=== PATIENT | female | born 1990 | race Caucasian/White ===

== ENCOUNTER 2018-04-18 02:47 | Inpatient (IN) ==
[2018-04-18] MEDS ORDERED: fentaNYL Citrate Inj 100 MCG/2 ML Ampul IV.PUSH PRN ×3 (03:19→04:21)
--- NOTE | 2018-04-18 03:23 | ED ---
History of Present Illness Service: [facility] [place] Primary Care Physician: Tania Womack MD Chief Complaint: Contractions History of Present Illness: This 28 y/o female , EGA 40 6/7 wks presents with c/o ctxs. She states they started today. She feels them approx every 5 min. She has a hx of pseudotumor and a seizure disorder for which she has not been taking meds. She has received PNC at [facility]. Weeks Gestation:: 40 Para: 0 : 4 Review of Systems All other systems reviewed negative except as stated in HPI [facility] - History History Provided By: Patient - Medical History Medical History: Medical History (Last Updated 04/14/18 @ 21:22 by Lc Douglas MD) Asthma Hydrocephalus Pseudotumor cerebri Seizures - Social History I have reviewed the patient's Social History: Yes - Tobacco History Smoking Status: Former smoker (quit during this ) Tobacco Type: Cigarettes - Alcohol History How Often Do You Have a Drink Containing Alcohol: Never (Previous alcohol abuse) - Substance Use History Substance History: No History of Abuse - Travel History History of Recent Travel: No Recent Travel in the [place] Within the Last 8 Weeks: No Recent Travel Out of the Country Within the Last 8 Weeks: No Medications and Allergies Allergies Allergy/AdvReac Type Severity Reaction Status Date / Time methylphenidate Allergy Unknown HIVES Verified 04/14/18 20:59 latex Allergy Rash Verified 04/14/18 20:59 Home Medications Medication Instructions Recorded Confirmed Type vit-iron fum-folic ac 1 tab PO DAILY 04/14/18 04/14/18 History [ Vitamin] Exam Vital signs: Vital Signs 04/18/18 02:58 04/18/18 03:10 Temperature 98.4 F Pulse Rate 80 Respiratory Rate 16 16 Blood Pressure 137/74 Narrative: GENERAL: Well-nourished, well-developed patient. SKIN: Warm and dry. HEAD: Normocephalic and atraumatic. EYES: No scleral icterus. No injection or drainage. ENT: No nasal drainage noted. Mucous membranes pink. Airway patent. NECK: Supple, trachea midline. No JVD. CARDIOVASCULAR: Regular rate and rhythm without murmurs, gallops, or rubs. RESPIRATORY: Breath sounds equal bilaterally. No accessory muscle use. ABDOMEN/GI: Abdomen soft, non-tender, bowel sounds present, no rebound, no guarding Gravid to [41+] weeks size GENITOURINARY: External Genitalia: intact and normal in appearance BUS glands: [Neg] Cervix: [] Dilatation: [1-2] Effacement: [50] Station: [-2] Presentation: [vtx] Membranes: [intact] Uterine Contractions: [every 2-3 min] FHT's: Category: [1] Baseline: [120] Reactive: [Yes] Variability: [Mod] Decels: [No] + Accels EXTREMITIES: No cyanosis or edema. BACK: Nontender without obvious deformity. No CVA tenderness. NEUROLOGICAL: Awake and alert. Motor and sensory grossly within normal limits. Five out of 5 muscle strength in all muscle groups. Normal speech. Results - Labs Group B Strep: Negative Assessment and Plan - Diagnosis (1) Uterine contractions during Code(s): O62.2 - Other uterine inertia Status: Acute (2) Seizure disorder Code(s): G40.909 - Epilepsy, unspecified, not intractable, without status epilepticus Status: Acute (3) 40 weeks gestation of Code(s): Z3A.40 - 40 weeks gestation of Status: Acute - Plan IV fluids, Fentanyl, recheck cervix in 1 hr 4:19 AM- Cervix rechecked- 3/50/-3, ctxs every 2-3 min, FHTs category 1, reactive Discharge Plan - Discharge Disposition Patient Disposition: ED Admit(ED Internal Use Only) - Physicians Team ED Provider: Liz Lieberman Primary Care Provider: Tania Womack Rxs /Orders / Referrals /Forms Prescriptions: No Action vit-iron fum-folic ac [ Vitamin] 27 mg iron- 0.8 mg Tablet 1 tab PO DAILY - Discharge Instructions Print Language: Zambian
[2018-04-18] MEDS ORDERED: Sod Chloride 0.9% Inj 1,000 ML IV.CONT PRN (04:21)
[2018-04-18] MEDS ORDERED: Oxytocin 30 Units/500ml Premix 30 UNITS/500 ML BAG IV.SIG ONE (04:21)
[2018-04-18] MEDS ORDERED: Naloxone Inj 0.4 MG/ML Vial IV.PUSH PRN ×2 (04:21→16:28)
[2018-04-18] MEDS ORDERED: Sodium Chlor 0.9% Inj 500 ML IV.SIG PRN (04:21)
--- NOTE | 2018-04-18 04:28 | P.HPOB ---
Patient Name: Renetta Hudson Date of : 86 Patient Status: Emergency Emergency Provider: Liz Lieberman Date: 04/18/18 04:26 Initialization Date: 04/18/18 03:20 History of Present Illness [place]: [facility] [place] Primary Care Physician: Tania Womack MD Chief Complaint: Contractions History of Present Illness: This 28 y/o female , EGA 40 6/7 wks presents with c/o ctxs. She states they started today. She feels them approx every 5 min. She has a hx of pseudotumor and a seizure disorder for which she has not been taking meds. She has received PNC at [facility]. Her initial cervical exam was 1-2 cm. It is now 3/50/-3. Weeks Gestation:: 40 Para: 0 : 4 Review of Systems All other systems reviewed negative except as stated in HPI [facility] - History History Provided By: Patient - Medical History Medical History: Medical History (Last Updated 04/14/18 @ 21:22 by Lc Douglas MD) Asthma Hydrocephalus Pseudotumor cerebri Seizures - Social History I have reviewed the patient's Social History: Yes - Tobacco History Smoking Status: Former smoker (quit during this ) Tobacco Type: Cigarettes - Alcohol History How Often Do You Have a Drink Containing Alcohol: Never (Previous alcohol abuse) - Substance Use History Substance History: No History of Abuse - Travel History History of Recent Travel: No Recent Travel in the [place] Within the Last 8 Weeks: No Recent Travel Out of the Country Within the Last 8 Weeks: No Medications and Allergies Allergies Allergy/AdvReac Type Severity Reaction Status Date / Time methylphenidate Allergy Unknown HIVES Verified 04/14/18 20:59 latex Allergy Rash Verified 04/14/18 20:59 Home Medications Medication Instructions Recorded Confirmed Type vit-iron fum-folic ac 1 tab PO DAILY 04/14/18 04/14/18 History [ Vitamin] Exam Vital signs: Vital Signs 04/18/18 02:58 04/18/18 03:10 Temperature 98.4 F Pulse Rate 80 Respiratory Rate 16 16 Blood Pressure 137/74 Narrative: GENERAL: Well-nourished, well-developed patient. SKIN: Warm and dry. HEAD: Normocephalic and atraumatic. EYES: No scleral icterus. No injection or drainage. ENT: No nasal drainage noted. Mucous membranes pink. Airway patent. NECK: Supple, trachea midline. No JVD. CARDIOVASCULAR: Regular rate and rhythm without murmurs, gallops, or rubs. RESPIRATORY: Breath sounds equal bilaterally. No accessory muscle use. ABDOMEN/GI: Abdomen soft, non-tender, bowel sounds present, no rebound, no guarding Gravid to [41+] weeks size GENITOURINARY: External Genitalia: intact and normal in appearance BUS glands: [Neg] Cervix: [] Dilatation: [13] Effacement: [50] Station: [-3] Presentation: [vtx] Membranes: [intact] Uterine Contractions: [every 2-3 min] FHT's: Category: [1] Baseline: [120] Reactive: [Yes] Variability: [Mod] Decels: [No] + Accels EXTREMITIES: No cyanosis or edema. BACK: Nontender without obvious deformity. No CVA tenderness. NEUROLOGICAL: Awake and alert. Motor and sensory grossly within normal limits. Five out of 5 muscle strength in all muscle groups. Normal speech. Results - Labs Group B Strep: Negative Assessment and Plan - Diagnosis (1) Uterine contractions during Code(s): O62.2 - Other uterine inertia Status: Acute (2) Seizure disorder Code(s): G40.909 - Epilepsy, unspecified, not intractable, without status epilepticus Status: Acute (3) 40 weeks gestation of Code(s): Z3A.40 - 40 weeks gestation of Status: Acute - Plan IV fluids, Fentanyl, recheck cervix in 1 hr 4:19 AM- Cervix rechecked- 3/50/-3, ctxs every 2-3 min, FHTs category 1, reactive Will admit in labor- epidural as needed Discharge Plan - Discharge Disposition Patient Disposition: ED Admit(ED Internal Use Only) - Physicians Team ED Provider: Liz Lieberman Primary Care Provider: Tania Womack - Rxs /Orders / Referrals /Forms Prescriptions: No Action vit-iron fum-folic ac [ Vitamin] 27 mg iron- 0.8 mg Tablet 1 tab PO DAILY - Discharge Instructions Print Language: Bangladeshi
[2018-04-18] MEDS ORDERED: Citric Acid/Sodium Citrate Liq 30 ML UDC PO SCH (04:30)
[2018-04-18 04:36] LABS: Baso % (Auto) 0.5 % (0.0-2.0); Eos # (Auto) 0.1 th/mm3 (0.0-0.4); Eos % (Auto) 0.6 % (0.0-4.0); Hematocrit 34.1 % (35.0-46.0); Hemoglobin 11.9 gm/dL (11.6-15.3); Lymph # (Auto) 3.6 th/mm3 (1.0-4.8); Mean Corpuscular Hemoglobin 30.9 pg (27.0-34.0); Mean Corpuscular Volume 88.3 fL (80.0-100.0); Mean Platelet Volume 9.6 fL (7.0-11.0); Mono # (Auto) 0.6 th/mm3 (0.0-0.9); Mono % (Auto) 5.6 % (0.0-8.0); Neut # (Auto) 6.5 th/mm3 (1.8-7.7); Neut % (Auto) 60.3 % (16.0-70.0); Platelet Count 207 th/mm3 (150-450); Red Blood Count 3.86 mil/mm3 (4.00-5.30); Red Cell Distribution Width 14.2 % (11.6-17.2); White Blood Count 10.8 th/mm3 (4.0-11.0)
[2018-04-18] MEDS ORDERED: fentaNYL 2MCG-Bupiv 0.125% Epi 150 ML EPIDURAL ONE (04:59)
[2018-04-18] MEDS ORDERED: Lidocaine PF 1% Inj 5 ML Vial ONE (05:21)
[2018-04-18] MEDS ORDERED: Lidocaaine 1.5%/Epinephrine 1:200,000 PF Inj 5 ML Amp ONE (05:21)
[2018-04-18] MEDS ORDERED: fentaNYL Citrate Inj 100 MCG/2 ML Ampul EPIDURAL ONE (06:29)
[2018-04-18] MEDS ORDERED: fentaNYL 2MCG-Bupiv 0.125% Epi 150 ML EPIDURAL PRN (06:29)
--- NOTE | 2018-04-18 07:34 | P.OBLABOR ---
Subjective Interval history: Pt doing well with epidural. Comfortable. Objective Vital Signs: Vital Signs - 8 hr 04/18/18 02:58 04/18/18 03:10 04/18/18 04:32 Temperature 98.4 F Pulse Rate 80 68 Respiratory Rate 16 16 Blood Pressure 137/74 128/70 04/18/18 04:45 04/18/18 05:29 04/18/18 05:40 Temperature Pulse Rate 67 72 Respiratory Rate 20 Blood Pressure 142/85 H 127/73 04/18/18 05:46 04/18/18 05:56 04/18/18 06:11 Temperature Pulse Rate 83 75 85 Respiratory Rate Blood Pressure 129/79 133/74 129/81 04/18/18 06:12 04/18/18 06:16 04/18/18 06:20 Temperature Pulse Rate 86 89 Respiratory Rate 18 Blood Pressure 120/72 04/18/18 06:58 04/18/18 07:01 04/18/18 07:21 Temperature Pulse Rate 73 71 73 Respiratory Rate 18 Blood Pressure 113/64 119/65 112/57 L Objective: Pelvic Exam: Cervix: [] Dilatation: [5] Effacement: [80] Station: [-3] Presentation: [vtx] Membranes: [uptured with amniohook] Uterine Contractions: [every 2-4 min] FHT's: Category: [1] Baseline: [120] Reactive: [yes] Variability: [Mod] Decels: [No] + Accels Weeks Gestation: 40 Patient Started Active Labor: Yes Active Labor Start Date: 04/18/18 Medical Induction of Labor: No Artificial Rupture of Membrane: Yes (meconium) Artificial ROM Date: 04/18/18 Artificial ROM Time: 07:30 Assessment and Plan - Diagnosis (1) Uterine contractions during Code(s): O62.2 - Other uterine inertia Status: Acute (2) Seizure disorder Code(s): G40.909 - Epilepsy, unspecified, not intractable, without status epilepticus Status: Acute (3) 40 weeks gestation of Code(s): Z3A.40 - 40 weeks gestation of Status: Acute
--- NOTE | 2018-04-18 11:28 | P.OBGPN ---
Patient complaining of severe rectal pain feeling as if she has to have a bowel movement On examination cervix is 5/80 %/-2. heart rate reassuring. Uterus was palpated at this time no clinical signs of abruption patient is not having frequent contractions without adequate uterine rest. Her epidural was topped off and also ordered Ativan 1 mg since patient appears quite uncomfortable
[2018-04-18] MEDS ORDERED: Lidocaine 1% Inj 50 ML Vial ONE (15:11)
[2018-04-18] MEDS ORDERED: Oxytocin 30 Units/500ml Premix 30 UNITS/500 ML BAG ONE (15:13)
[2018-04-18] MEDS ORDERED: Oxytocin 30 Units/500ml Premix 30 UNITS/500 ML BAG IV.CONT PRN (16:28)
[2018-04-18] MEDS ORDERED: Benzocaine 20% Top Spray 60 ML Can TOPICAL PRN (16:28)
[2018-04-18] MEDS ORDERED: Witch Hazel 50%/Glyderin 12.5% 40 Pad Jar RECTAL PRN (16:28)
[2018-04-18] MEDS ORDERED: Acetaminophen 325 MG Tablet PO PRN (16:28)
[2018-04-18] MEDS ORDERED: Bisacodyl 10 MG Supp RECTAL PRN (16:28)
[2018-04-18] MEDS ORDERED: LORazepam 1 MG Tablet PO PRN (16:29)
--- NOTE | 2018-04-18 16:39 | P.OBDELI ---
Weeks Gestation: 40 Episiotomy: none Vaginal Delivery: Normal, Spontaneous Nuchal Cord: x1 Delayed Cord Clamping (45 sec): Yes Placenta: Spontaneous delivery, Uterus explored + Laceration: Vaginal (right labial tear repaired in the usual fashion) Estimated blood loss (mL): 200 Infant: Female Female A Delivery Date: 04/18/18 Delivery Time: 16:11 Weight: 3.275 kg score (1 min): 7 score (5 min): 8 Additional Information: Delivered by Dr. Baird, Supervised by Dr. HARRIS
[2018-04-18] MEDS ORDERED: Diphtheria/Tetanus/Pertussis Vaccine Inj 0.5 ML Syringe IM ONE (18:00)
[2018-04-18] MEDS ORDERED: Measles/Mumps/Rubella Vaccine Inj 0.5 ML Vial SQ ONE (18:00)
[2018-04-18] MEDS ORDERED: Zolpidem Tartrate 5 MG Tablet PO PRN (21:00)
[2018-04-19] MEDS: Senna/Docusate Sodium 8.6/50 MG Tablet PO SCH ×3 (00:37→22:06)
[2018-04-19] MEDS: Prenatal Vit/Ca/Iron/Folic Acid Tablet PO SCH (08:19)
--- NOTE | 2018-04-19 09:19 | P.PNOB ---
Subjective Post day: 1 Interval history: Patient is a 28-year-old delivered at 40 weeks and 6 days. Patient is day 1 after . Patient's pain is well-controlled. Patient reports eating and drinking without any nausea or vomiting. Patient reports minimal bleeding. Patient has passed gas but no bowel movements. Patient is walking without lower extremity pain or shortness of breath. Objective Vital Signs/I&O: Vital Signs 04/18/18 09:45 04/18/18 10:31 04/18/18 11:01 Temperature 98.7 F Pulse Rate 74 71 76 Respiratory Rate 18 Blood Pressure 123/67 114/51 L 139/75 04/18/18 11:20 04/18/18 11:39 04/18/18 11:40 Temperature Pulse Rate 150 H Respiratory Rate 20 20 Blood Pressure 131/80 04/18/18 12:06 04/18/18 13:01 04/18/18 13:15 Temperature 98.0 F Pulse Rate 83 85 Respiratory Rate 20 20 Blood Pressure 119/47 L 131/74 04/18/18 14:02 04/18/18 14:24 04/18/18 16:25 Temperature 98.1 F 99.3 F Pulse Rate 114 H Respiratory Rate 20 20 Blood Pressure 123/109 H 04/18/18 16:33 04/18/18 16:40 04/18/18 17:16 Temperature Pulse Rate 110 H 99 H 90 Respiratory Rate 18 Blood Pressure 125/81 127/94 H 129/82 04/18/18 17:21 04/18/18 17:33 04/18/18 18:01 Temperature Pulse Rate 97 H 93 H Respiratory Rate 18 Blood Pressure 126/82 128/74 04/18/18 18:16 04/18/18 19:32 04/18/18 19:33 Temperature Pulse Rate 87 86 Respiratory Rate 18 Blood Pressure 143/93 H 129/72 04/18/18 20:25 Temperature 97.9 F Pulse Rate 80 Respiratory Rate 18 Blood Pressure 142/80 H Result Diagrams: 04/18/18 03:20 Objective Remarks: GENERAL: Well-nourished, well-developed patient. CARDIOVASCULAR: Regular rate and rhythm without murmurs, gallops, or rubs. RESPIRATORY: Breath sounds equal bilaterally. No accessory muscle use. ABDOMEN/GI: Abdomen soft, non-tender. Fundus: Firm, non-tender at umbilicus. GENITOURINARY: Light to moderate bleeding. EXTREMITIES: No cyanosis or edema, non-tender, without signs of DVT. Medications and IVs: Active Medications Acetaminophen (Tylenol) 650 mg PO Q4H PRN PRN Reason: PAIN SCALE 1 TO 2 Al Hydroxide/Mg Hydroxide (Milk Of Magnesia Liq) 30 ml PO Q12H PRN PRN Reason: Mild Constipation Benzocaine (Americaine 20% [place]) 1 spray TOPICAL Q4H PRN PRN Reason: For Perineum Discomfort Last Admin: 04/18/18 18:19 Dose: 1 spray Bisacodyl (Dulcolax Supp) 10 mg RECTAL DAILY PRN PRN Reason: SEVERE CONSITIPATION Citric Acid/Sodium Citrate (Sodium Citrate/Citric Acid Liq) 30 ml PO [employer] [facility] Stop: 04/22/18 04:29 Fentanyl Citrate (Fentanyl Inj) 25 mcg IV.PUSH Q1H PRN PRN Reason: PROCEDURE ANESTHESIA Fentanyl Citrate (Fentanyl Inj) 100 mcg IV.PUSH Q1H PRN PRN Reason: PAIN SCALE 6 TO 10 Fentanyl Citrate (Fentanyl Inj) 50 mcg IV.PUSH Q1H PRN PRN Reason: Pain Scale 3 - 5 Lactated Ringer's (Lr 1000 Ml Inj) 1,000 mls @ 125 mls/hr IV.CONT .Q8H [facility] Last Admin: 04/18/18 22:09 Dose: Not Given Lactated Ringer's (Lr 1000 Ml Inj) 1,000 mls @ 3,000 mls/hr IV.SIG UNSCH PRN PRN Reason: compromise or epidural Lactated Ringer's (Lr 1000 Ml Inj) 1,000 mls @ 125 mls/hr IV.CONT .Q8H [facility] Last Admin: 04/19/18 07:24 Dose: Not Given Sodium Chloride (Ns Inj) 500 mls @ 1,000 mls/hr IV.SIG UNSCH PRN PRN Reason: SEE LABEL COMMENTS Sodium Chloride (Ns Inj) 1,000 mls @ 100 mls/hr IV.CONT .Q10H PRN PRN Reason: SEE LABEL COMMENTS Fentanyl/Bupivacaine/Sodium Chlor (Fentanyl 2 Mcg-Bupiv 0.125% Epi) 150 mls @ 10 mls/hr EPIDURAL PRN PRN PRN Reason: for Labor Pain Last Admin: 04/18/18 06:20 Dose: 10 mls/hr Oxytocin (Pitocin 30 Units/Ns 500 Ml Premix) 30 units in 500 mls @ 100 mls/hr IV.CONT UNSCH PRN PRN Reason: Heavy bleeding Ibuprofen (Motrin) 800 mg PO Q8H PRN PRN Reason: For Cramping Last Admin: 04/19/18 08:19 Dose: 800 mg Lactulose (Lactulose Liq) 30 ml PO DAILY PRN PRN Reason: SEVERE CONSITIPATION Lidocaine HCl (Xylocaine 1% Inj) 10 ml INFILTRATN PRN PRN PRN Reason: For episiotomy repair Stop: 04/20/18 04:20 Mineral Oil (Muri-Lube Oil) 10 ml TOPICAL PRN PRN PRN Reason: PRN perineal massage Last Admin: 04/18/18 16:00 Dose: 10 ml Naloxone HCl (Narcan Inj) 0.1 mg IV.PUSH Q2M PRN PRN Reason: for opiate reversal Naloxone HCl (Narcan Inj) 0.1 mg IV.PUSH Q2M PRN PRN Reason: for opiate reversal Ondansetron HCl (Zofran Odt) 4 mg PO Q6H PRN PRN Reason: NAUSEA OR VOMITING Vit/Calcium/Iron/Folic Ac (Stuartnatal Plus 3) 1 tab PO DAILY [facility] Last Admin: 04/19/18 08:19 Dose: 1 tab Senna/Docusate Sodium (Lucero-Colace) 1 tab PO BID [facility] Last Admin: 04/19/18 08:19 Dose: 1 tab Sennosides (Senokot) 17.2 mg PO Q12H PRN PRN Reason: Moderate Constipation Witch Sonia/Glycerin (Tucks Pads) 1 applicatio RECTAL QID PRN PRN Reason: HEMORRHOIDS Last Admin: 04/18/18 18:19 Dose: 1 applicatio Zolpidem Tartrate (Ambien) 5 mg PO HS PRN PRN Reason: SLEEP Assessment and Plan - Diagnosis (1) Vaginal delivery Code(s): O80 - Encounter for full-term uncomplicated delivery Status: Acute - Plan Patient is a 28-year-old delivered at 40 weeks and 6 days. Patient is day 1 after . Patient was counseled to do 6 weeks of pelvic rest. Patient was counseled to follow up in 6 weeks. --AF VSS but BP is 140s/90s --Will monitor BP Q1H for 4 hours --CBC and CMP to monitor platelets and LFTs --Continue routine care --Motrin when necessary for pain --Encourage OOB --Pelvic rest for 6 weeks will need follow-up appointment at that time. --Contraception: Patient is still contemplating method --Anticipate discharge tomorrow
[2018-04-19 10:24] LABS: Baso % (Auto) 0.3 % (0.0-2.0); Eos # (Auto) 0.1 th/mm3 (0.0-0.4); Eos % (Auto) 0.4 % (0.0-4.0); Hematocrit 32.9 % (35.0-46.0); Hemoglobin 11.3 gm/dL (11.6-15.3); Lymph # (Auto) 3.6 th/mm3 (1.0-4.8); Lymph % (Auto) 20.9 % (9.0-44.0); Mean Corpuscular HGB Conc 34.2 % (32.0-36.0); Mean Corpuscular Hemoglobin 30.7 pg (27.0-34.0); Mean Corpuscular Volume 89.8 fL (80.0-100.0); Mean Platelet Volume 9.3 fL (7.0-11.0); Mono # (Auto) 0.7 th/mm3 (0.0-0.9); Mono % (Auto) 3.9 % (0.0-8.0); Neut # (Auto) 12.7 th/mm3 (1.8-7.7); Neut % (Auto) 74.5 % (16.0-70.0); Platelet Count 193 th/mm3 (150-450); Red Blood Count 3.67 mil/mm3 (4.00-5.30); Red Cell Distribution Width 14.9 % (11.6-17.2)
[2018-04-19 10:52] LABS: Albumin 2.6 g/dL (3.4-5.0); Anion Gap 9 meq/L (5-15); Blood Urea Nitrogen 7 mg/dL (7-18); Calcium 9.1 mg/dL (8.5-10.1); Carbon Dioxide 22.9 meq/L (21.0-32.0); Chloride 108 meq/L (98-107); Glucose,Random 97 mg/dL (74-106); Potassium 3.7 meq/L (3.5-5.1); Sodium 140 meq/L (136-145)
[2018-04-19 12:19] LABS: Alanine Aminotransferase 47 U/L (10-53); Alkaline Phosphatase 128 U/L (45-117); Aspartate Aminotransferase 159 U/L (15-37); Glomerular Filtration Rate 70 mL/min (>89); Total Protein 6.1 g/dL (6.4-8.2)
[2018-04-19 16:33] LABS: Albumin 2.6 g/dL (3.4-5.0)
[2018-04-19 16:35] LABS: Total Protein 6.1 g/dL (6.4-8.2)
[2018-04-20] MEDS: Prenatal Vit/Ca/Iron/Folic Acid Tablet PO SCH (08:19)
[2018-04-20] MEDS: Senna/Docusate Sodium 8.6/50 MG Tablet PO SCH (08:19)
[2018-04-20 08:29] LABS: Baso % (Auto) 0.4 % (0.0-2.0); Eos # (Auto) 0.2 th/mm3 (0.0-0.4); Eos % (Auto) 1.5 % (0.0-4.0); Hematocrit 30.2 % (35.0-46.0); Hemoglobin 10.5 gm/dL (11.6-15.3); Lymph # (Auto) 3.2 th/mm3 (1.0-4.8); Lymph % (Auto) 30.7 % (9.0-44.0); Mean Corpuscular HGB Conc 34.8 % (32.0-36.0); Mean Corpuscular Hemoglobin 31.3 pg (27.0-34.0); Mean Platelet Volume 8.9 fL (7.0-11.0); Mono # (Auto) 0.6 th/mm3 (0.0-0.9); Mono % (Auto) 5.4 % (0.0-8.0); Neut # (Auto) 6.5 th/mm3 (1.8-7.7); Platelet Count 180 th/mm3 (150-450); Red Blood Count 3.35 mil/mm3 (4.00-5.30); Red Cell Distribution Width 14.9 % (11.6-17.2); White Blood Count 10.6 th/mm3 (4.0-11.0)
[2018-04-20 08:51] LABS: Albumin 2.7 g/dL (3.4-5.0); Anion Gap 11 meq/L (5-15); Aspartate Aminotransferase 119 U/L (15-37); Blood Urea Nitrogen 7 mg/dL (7-18); Calcium 8.7 mg/dL (8.5-10.1); Carbon Dioxide 20.5 meq/L (21.0-32.0); Chloride 110 meq/L (98-107); Glomerular Filtration Rate 76 mL/min (>89); Glucose,Random 82 mg/dL (74-106); Potassium 3.5 meq/L (3.5-5.1); Sodium 141 meq/L (136-145)
[2018-04-20 08:52] LABS: Alanine Aminotransferase 52 U/L (10-53)
[2018-04-20 08:54] LABS: Alkaline Phosphatase 108 U/L (45-117); Total Protein 5.8 g/dL (6.4-8.2)
--- NOTE | 2018-04-20 09:01 | P.PNOB ---
Subjective Post day: 2 Interval history: day # 2. AFVSS overnight. Pain well-controlled. Decreased lochia. Denies dysuria. No breast tenderness. She is feeding the baby via breast/ bottle. Appetite good. No nausea or vomiting. + flatus. no bowel movement. Ambulating well. Denies calf pain, shortness of breath, or cough. Otherwise, she is doing well this morning and has no other complaints. Objective Vital Signs/I&O: Vital Signs 04/19/18 10:00 04/19/18 11:00 04/19/18 20:00 Temperature 98.1 F 98.1 F Pulse Rate 83 78 93 H Respiratory Rate 18 18 18 Blood Pressure 131/82 142/87 H 146/97 H 04/20/18 08:10 Temperature 97.7 F Pulse Rate 76 Respiratory Rate 18 Blood Pressure 133/81 Result Diagrams: 04/20/18 08:18 04/20/18 08:18 Objective Remarks: GENERAL: Well-nourished, well-developed patient. CARDIOVASCULAR: Regular rate and rhythm without murmurs, gallops, or rubs. RESPIRATORY: Breath sounds equal bilaterally. No accessory muscle use. ABDOMEN/GI: Abdomen soft, non-tender. Fundus: Firm, non-tender at umbilicus. GENITOURINARY: Light to moderate bleeding. EXTREMITIES: No cyanosis or edema, non-tender, without signs of DVT. Medications and IVs: Active Medications Acetaminophen (Tylenol) 650 mg PO Q4H PRN PRN Reason: PAIN SCALE 1 TO 2 Al Hydroxide/Mg Hydroxide (Milk Of Magnesia Liq) 30 ml PO Q12H PRN PRN Reason: Mild Constipation Benzocaine (Americaine 20% Top [place]) 1 spray TOPICAL Q4H PRN PRN Reason: For Perineum Discomfort Last Admin: 04/18/18 18:19 Dose: 1 spray Bisacodyl (Dulcolax Supp) 10 mg RECTAL DAILY PRN PRN Reason: SEVERE CONSITIPATION Citric Acid/Sodium Citrate (Sodium Citrate/Citric Acid Liq) 30 ml PO [facility] Stop: 04/22/18 04:29 Fentanyl Citrate (Fentanyl Inj) 25 mcg IV.PUSH Q1H PRN PRN Reason: PROCEDURE ANESTHESIA Fentanyl Citrate (Fentanyl Inj) 100 mcg IV.PUSH Q1H PRN PRN Reason: PAIN SCALE 6 TO 10 Fentanyl Citrate (Fentanyl Inj) 50 mcg IV.PUSH Q1H PRN PRN Reason: Pain Scale 3 - 5 Lactated Ringer's (Lr 1000 Ml Inj) 1,000 mls @ 125 mls/hr IV.CONT .Q8H [facility] Last Admin: 04/18/18 22:09 Dose: Not Given Lactated Ringer's (Lr 1000 Ml Inj) 1,000 mls @ 3,000 mls/hr IV.SIG UNSCH PRN PRN Reason: compromise or epidural Lactated Ringer's (Lr 1000 Ml Inj) 1,000 mls @ 125 mls/hr IV.CONT .Q8H [facility] Last Admin: 04/19/18 22:08 Dose: Not Given Sodium Chloride (Ns Inj) 500 mls @ 1,000 mls/hr IV.SIG UNSCH PRN PRN Reason: SEE LABEL COMMENTS Sodium Chloride (Ns Inj) 1,000 mls @ 100 mls/hr IV.CONT .Q10H PRN PRN Reason: SEE LABEL COMMENTS Fentanyl/Bupivacaine/Sodium Chlor (Fentanyl 2 Mcg-Bupiv 0.125% Epi) 150 mls @ 10 mls/hr EPIDURAL PRN PRN PRN Reason: for Labor Pain Last Admin: 04/18/18 06:20 Dose: 10 mls/hr Oxytocin (Pitocin 30 Units/Ns 500 Ml Premix) 30 units in 500 mls @ 100 mls/hr IV.CONT UNSCH PRN PRN Reason: Heavy bleeding Ibuprofen (Motrin) 800 mg PO Q8H PRN PRN Reason: For Cramping Last Admin: 04/20/18 08:19 Dose: 800 mg Lactulose (Lactulose Liq) 30 ml PO DAILY PRN PRN Reason: SEVERE CONSITIPATION Mineral Oil (Muri-Lube Oil) 10 ml TOPICAL PRN PRN PRN Reason: PRN perineal massage Last Admin: 04/18/18 16:00 Dose: 10 ml Naloxone HCl (Narcan Inj) 0.1 mg IV.PUSH Q2M PRN PRN Reason: for opiate reversal Naloxone HCl (Narcan Inj) 0.1 mg IV.PUSH Q2M PRN PRN Reason: for opiate reversal Ondansetron HCl (Zofran Odt) 4 mg PO Q6H PRN PRN Reason: NAUSEA OR VOMITING Vit/Calcium/Iron/Folic Ac (Stuartnatal Plus 3) 1 tab PO DAILY [facility] Last Admin: 04/20/18 08:19 Dose: 1 tab Senna/Docusate Sodium (Lucero-Colace) 1 tab PO BID [facility] Last Admin: 04/20/18 08:19 Dose: 1 tab Sennosides (Senokot) 17.2 mg PO Q12H PRN PRN Reason: Moderate Constipation Witch Sonia/Glycerin (Tucks Pads) 1 applicatio RECTAL QID PRN PRN Reason: HEMORRHOIDS Last Admin: 04/18/18 18:19 Dose: 1 applicatio Zolpidem Tartrate (Ambien) 5 mg PO HS PRN PRN Reason: SLEEP Assessment and Plan - Diagnosis (1) Vaginal delivery Code(s): O80 - Encounter for full-term uncomplicated delivery Status: Acute - Plan Patient is a 28-year-old delivered at 40 weeks and 6 days. Patient is day 2 after . --AF VSS, last BP is 130s/80s --CBC shows platelets are stable --CMP shows LFTs are trending down --No signs/sx of preeclampsia --Motrin when necessary for pain --Encourage OOB --Pelvic rest for 6 weeks will need follow-up appointment at that time. --Contraception: Patient is still contemplating method, will discuss with OB provider --Anticipate discharge today [facility] Dr. Lieberman
== END 2018-04-20 12:08 | disposition home or self-care (01) ==
LOC: HOBED 02:47 → H2E 04:27 → H1EA 20:00
PROVIDERS: ADMIT Obstetrics & Gynecology; ATTEND Obstetrics & Gynecology